=== PATIENT | female | born 1960 | race Caucasian/White ===

== ENCOUNTER 2017-04-27 11:38 | Observation (INO) | payer OTHER ==
[~2017-04-27] VITALS: Ht 157.5 cm; Wt 62.0 kg
--- NOTE | 2017-04-27 12:05 | DIAGNOSTIC IMAGING REPORT ---
CHEST ONE VIEW PORTABLE HISTORY: Atypical chest pain COMPARISON: None. FINDINGS: The lungs are clear. Cardiac silhouette is normal in size. No pleural effusions. No pneumothorax. IMPRESSION: No acute process. Electronically signed by: Simone Zee M.D. 04/27/2017 12:03 PM Dictated Date/Time: 04/27/2017 12:03 PM
[2017-04-27 12:06] LABS: HEMATOCRIT 42.8 % (37-47); HEMOGLOBIN 14.5 g/dL (12.0-16.0); MEAN CELL VOLUME 95.5 fL (80-100); MEAN CORPUSCULAR HEMOGLOBIN 32.4 pg (25-34); MEAN CORPUSCULAR HGB CONC 33.9 g/dl (32-36); MEAN PLATELET VOLUME 9.1 fL (7.4-10.4); PLATELET COUNT 278 K/uL (130-400); RED CELL DISTRIBUTION WIDTH CV 13.3 % (11.5-14.5); RED CELL DISTRIBUTION WIDTH SD 45.8 fL (36.4-46.3); WHITE BLOOD COUNT 8.37 K/uL (4.8-10.8)
[2017-04-27] MEDS ORDERED: MULT-1018 PO (12:12)
[2017-04-27] MEDS ORDERED: BLAC1TAB PO (12:12)
[2017-04-27] MEDS ORDERED: ASPI81TA28 PO (12:12)
[2017-04-27 12:16] LABS: PTT PATIENT 25.2 SECONDS (21.0-31.0)
[2017-04-27 12:19] LABS: ALBUMIN 4.1 gm/dl (3.4-5.0); CALCIUM 9.1 mg/dl (8.5-10.1); CREATININE 0.66 mg/dl (0.60-1.20); POTASSIUM 3.7 mmol/L (3.5-5.1)
[2017-04-27 12:24] LABS: CKMB 2.3 ng/ml (0.5-3.6); TOTAL PROTEIN 7.6 gm/dl (6.4-8.2)
[2017-04-27] MEDS ORDERED: ASPIRIN 81 MG CHEW PO STA (12:42)
[2017-04-27] MEDS ORDERED: NITROGLYCERIN 0.4 MG SL PER TAB CHARGE SL PRN (13:45)
[2017-04-27] MEDS ORDERED: ONDANSETRON INJ 2 MG/ML 2 ML VIAL IV PRN (13:45)
[2017-04-27] MEDS ORDERED: ACETAMINOPHEN 325 MG TAB PO PRN (13:45)
[2017-04-27] MEDS ORDERED: MAGNESIUM HYDROXIDE SUSP 30 ML UDC PO PRN (13:45)
--- NOTE | 2017-04-27 13:53 | History and Physical ---
History & Physical Date & Time of Service: Apr 27, 2017 at 13:43 Chief Complaint: Chest Pain,Tingling In Right Arm,Light Headed Primary Care Physician: Jennifer Barr MD History of Present Illness Source: patient 57 y/o F c/o chest pain. 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 It did not radiate anywhere. She did not have SOB, but states she was afraid to take a breath because it hurt. She then noted nausea and a headache and R hand tingling. She took aspirin 81mg and felt improved. Pt has not prior hx of chest pain or similar sx. She has not had recurrence of these sx since that time. Pt is generally very active. She works 12 hour days and is active around their home. She states she has felt a bit more fatigued than usual. She noted neck pain around 04/14/17 and was seen by an urgent care. XR showed OA. She was dx with eustachian tube dysfunction and given a prescription for steroids. She noted feeling overall improved while on the steroids, but since she finished them, her neck pain is slowly returning and her energy is not as high again. She states that other than this, yesterday was a normal day for her and she had no other issues completing her usual day. Pt denies fever, abd pain, v/c/d, LE pain or swelling. Past Medical/Surgical History Medical Problems: (1) Neck arthritis Status: Chronic Family History Heart disease Father: with CHF Mother: , Multiple CVAs and MIs, hx of afib Social History Smoking Status: Never Smoker Alcohol Use: 1-2 beers on most days Drug Use: none Allergies Coded Allergies: No Known Allergies (Unverified , 04/27/17) Home Medications Scheduled Aspirin (Aspirin Ec), 81 MG PO UD Black Cohosh (Cimicifuga Racem (Black Cohosh), Unknown Dose PO DAILY Multiple Vitamins W/ Minerals (Hair Skin and Nails Formu), 1 TAB PO DAILY Review of Systems Pertinent positives and negatives reviewed in HPI--all others negative Physical Exam Vital Signs Date Time Temp Pulse Resp B/P (MAP) Pulse Ox O2 Delivery O2 Flow Rate FiO2 04/27/17 12:49 84 18 132/76 100 Room Air 04/27/17 12:21 85 04/27/17 11:58 81 18 150/94 99 Room Air 04/27/17 11:55 100 Room Air 04/27/17 11:50 99 Room Air 04/27/17 11:47 36.8 81 18 178/103 99 Room Air 04/27/17 11:47 99 Room Air General Appearance: WD/WN, no apparent distress Head: normocephalic, atraumatic Eyes: normal inspection, EOMI, sclerae normal Respiratory/Chest: normal breath sounds, no respiratory distress Cardiovascular: regular rate, rhythm, no edema, normal peripheral pulses Abdomen/GI: non tender, soft Extremities/Musculoskelatal: no calf tenderness, no pedal edema Neurologic/Psych: alert, normal mood/affect, oriented x 3 Skin: normal color, warm/dry Diagnostics Laboratory Results Results Past 24 Hours Test 04/27/17 11:45 04/27/17 11:51 Range/Units White Blood Count 8.37 4.8-10.8 K/uL Red Blood Count 4.48 4.2-5.4 M/uL Hemoglobin 14.5 12.0-16.0 g/dL Hematocrit 42.8 37-47 % Mean Corpuscular Volume 95.5 80-100 fL Mean Corpuscular Hemoglobin 32.4 25-34 pg Mean Corpuscular Hemoglobin Concent 33.9 32-36 g/dl RDW Standard Deviation 45.8 36.4-46.3 fL RDW Coefficient of Variation 13.3 11.5-14.5 % Platelet Count 278 130-400 K/uL Mean Platelet Volume 9.1 7.4-10.4 fL Prothrombin Time 10.4 9.0-12.0 SECONDS Prothromb Time International Ratio 1.0 0.9-1.1 Activated Partial Thromboplast Time 25.2 21.0-31.0 SECONDS Partial Thromboplastin Ratio 1.0 Sodium Level 139 136-145 mmol/L Potassium Level 3.7 3.5-5.1 mmol/L Chloride Level 104 98-107 mmol/L Carbon Dioxide Level 27 21-32 mmol/L Anion Gap 8.0 3-11 mmol/L Blood Urea Nitrogen 13 7-18 mg/dl Creatinine 0.66 0.60-1.20 mg/dl Est Creatinine Clear Calc Drug Dose 75.3 ml/min Estimated GFR () 114.5 Estimated GFR (Non- 98.8 BUN/Creatinine Ratio 19.4 10-20 Random Glucose 94 70-99 mg/dl Calcium Level 9.1 8.5-10.1 mg/dl Total Bilirubin 0.4 0.2-1 mg/dl Aspartate Amino Transf (AST/SGOT) 19 15-37 U/L Alanine Aminotransferase (ALT/SGPT) 28 12-78 U/L Alkaline Phosphatase 51 45-117 U/L Total Creatine Kinase 104 26-192 U/L Creatine Kinase MB 2.3 0.5-3.6 ng/ml Creatine Kinase MB Ratio 2.2 0-3.0 Total Protein 7.6 6.4-8.2 gm/dl Albumin 4.1 3.4-5.0 gm/dl Globulin 3.5 2.5-4.0 gm/dl Albumin/Globulin Ratio 1.2 0.9-2 Bedside Troponin I < 0.030 0-0.045 ng/ml CXR normal Normal EKG Impression Assessment and Plan 57 y/o F who was admitted for observation on 04/27 for chest pain. Chest pain: uncertain etiology, rule out ACS CXR neg EKG WNL Trop neg x1, serials pending CBC, PRP neg Lyme, TSH, ddimer pending Lipid panel pending Sx were at rest and typically very active, t/c outpt stress test if work-up is neg Other: Full code Reg diet Ambulation for DVT proph given likely short duration of admission Level of Care Telemetry Resuscitation Status FULL RESUSCITATION VTE Prophylaxis VTE Risk Assessment Done? Y/N: Yes Risk Level: Low
[2017-04-27] MEDS ORDERED: IV FLUIDS COMPLETED PRN (14:15)
[2017-04-27 14:23] VITALS: O2SAT 97; Ht 157.5 cm; Wt 62.0 kg
[2017-04-27 14:25] VITALS: O2SAT 97
--- NOTE | 2017-04-27 14:52 | EMERGENCY ROOM VISIT NOTE ---
History Report prepared by Donnie: Hernando Matthews Under the Supervision of: Dr. Marshall Bhagat M.D. First contact with patient: 12:20 Chief Complaint: CHEST PAIN Stated Complaint: CHEST PAIN,TINGLING IN RIGHT ARM,LIGHT HEADED Nursing Triage Summary: Today at 0945 pt experienced sharp CP across her whole chest lasting about three minutes, then the CP resolved and pt felt "woozy and had a dull headache". Pt took a baby ASA. Denies cardiac hx. No CP currently, but still feels woozy with headache 2/10. Pt recently was on Prednisone for arthritic neck pain, dx by PCP with xrays, prednisone rx complete. Neck pain was better while she was on steroids, but now that rx is complete, pain has returned 3/10. History of Present Illness The patient is a 57 year old female who presents to the Emergency Room with complaints of sharp bilateral chest pain that occurred about 3 hours ago, lasting for 3 minutes. After this small episode, her pain resolved and she is currently pain-free. After her chest pain resolved, she began to experience nausea with a dull headache. She took a baby Aspirin at this time, but her chest pain never recurred. However, she is experiencing some right sided arm numbness mildly. Pt denies LOC, fevers, chills, diaphoresis, visual changes, neck pain, tearing pain radiating to the back, personal history or family history of aneurysm or pulmonary embolism, uncontrolled hypertension, breathing difficulties, leg swelling, coagulation abnormalities, prolonged travel, recent surgery or immobilization, vomiting, abdominal pain, melena, hematochezia, urinary symptoms, weakness, lymphadenopathy, rash, or other complaints. She notes that she was recently on Prednisone for arthritic neck pain and has completed her course. While she was taking them, her neck pain was not present, but now that she is off of them she is having neck pain. She does not take Aspirin or any other blood thinners regularly. Source of History: patient Onset: 3 hours ago Position: chest (bilateral) Symptom Intensity: moderate Quality: sharp Timing: resolved Associated Symptoms: + headache, + neck pain, + nausea, + numbness (right arm) Review of Systems See HPI for pertinent positives and negatives. A total of ten systems were reviewed and were otherwise negative. Past Medical & Surgical Medical Problems: (1) Chest pain (2) Neck arthritis Family History Heart disease Social History Smoking Status: Never Smoker Smokeless Tobacco Use: No Drug Use: none Marital Status: Housing Status: lives with family Current/Historical Medications Scheduled Aspirin (Aspirin Ec), 81 MG PO UD Black Cohosh (Cimicifuga Racem (Black Cohosh), Unknown Dose PO DAILY Multiple Vitamins W/ Minerals (Hair Skin and Nails Formu), 1 TAB PO DAILY Allergies Coded Allergies: No Known Allergies (Unverified , 04/27/17) Physical Exam Vital Signs Date Time Temp Pulse Resp B/P (MAP) Pulse Ox O2 Delivery O2 Flow Rate FiO2 04/27/17 14:25 87 16 133/85 97 Room Air 04/27/17 14:23 97 Room Air 04/27/17 12:49 84 18 132/76 100 Room Air 04/27/17 12:21 85 04/27/17 11:58 81 18 150/94 99 Room Air 04/27/17 11:55 100 Room Air 04/27/17 11:50 99 Room Air 04/27/17 11:47 36.8 81 18 178/103 99 Room Air 04/27/17 11:47 99 Room Air Physical Exam GENERAL: Awake, alert, well-appearing, in no distress HENT: Normocephalic, atraumatic. Oropharynx unremarkable. EYES: Normal conjunctiva. Sclera non-icteric. NECK: Supple. No nuchal rigidity. FROM. No JVD. RESPIRATORY: Clear to auscultation. CARDIAC: Regular rate, normal rhythm. Extremities warm and well perfused. Pulses equal. ABDOMEN: Soft, non-distended. No tenderness to palpation. No rebound or guarding. No masses. RECTAL: Deferred. MUSCULOSKELETAL: Chest examination reveals no tenderness. The back is symmetrical on inspection without obvious abnormality. There is no CVA tenderness to palpation. No joint edema. LOWER EXTREMITIES: Calves are equal size bilaterally and non-tender. No edema. No discoloration. NEURO: Normal sensorium. No sensory or motor deficits noted. SKIN: No rash or jaundice noted. Medical Decision & Procedures ER Provider Diagnostic Interpretation: Radiology results as stated below per my review and radiologist interpretation: CHEST ONE VIEW PORTABLE HISTORY: Atypical chest pain COMPARISON: None. FINDINGS: The lungs are clear. Cardiac silhouette is normal in size. No pleural effusions. No pneumothorax. IMPRESSION: No acute process. Electronically signed by: iSmone Zee M.D. 04/27/2017 12:03 PM Dictated Date/Time: 04/27/2017 12:03 PM Laboratory Results 04/27/17 11:45 04/27/17 11:45 Test 04/27/17 11:45 04/27/17 11:51 04/27/17 13:38 Red Blood Count 4.48 M/uL (4.2-5.4) Mean Corpuscular Volume 95.5 fL (80-100) Mean Corpuscular Hemoglobin 32.4 pg (25-34) Mean Corpuscular Hemoglobin Concent 33.9 g/dl (32-36) RDW Standard Deviation 45.8 fL (36.4-46.3) RDW Coefficient of Variation 13.3 % (11.5-14.5) Mean Platelet Volume 9.1 fL (7.4-10.4) Prothrombin Time 10.4 SECONDS (9.0-12.0) Prothromb Time International Ratio 1.0 (0.9-1.1) Activated Partial Thromboplast Time 25.2 SECONDS (21.0-31.0) Partial Thromboplastin Ratio 1.0 Anion Gap 8.0 mmol/L (3-11) Est Creatinine Clear Calc Drug Dose 75.3 ml/min Estimated GFR () 114.5 Estimated GFR (Non- 98.8 BUN/Creatinine Ratio 19.4 (10-20) Calcium Level 9.1 mg/dl (8.5-10.1) Total Bilirubin 0.4 mg/dl (0.2-1) Aspartate Amino Transf (AST/SGOT) 19 U/L (15-37) Alanine Aminotransferase (ALT/SGPT) 28 U/L (12-78) Alkaline Phosphatase 51 U/L (45-117) Total Creatine Kinase 104 U/L (26-192) Creatine Kinase MB 2.3 ng/ml (0.5-3.6) Creatine Kinase MB Ratio 2.2 (0-3.0) Total Protein 7.6 gm/dl (6.4-8.2) Albumin 4.1 gm/dl (3.4-5.0) Globulin 3.5 gm/dl (2.5-4.0) Albumin/Globulin Ratio 1.2 (0.9-2) Bedside Troponin I < 0.030 ng/ml (0-0.045) Laboratory results reviewed by me Medications Administered Medications (Trade) Dose Ordered Sig/Russ Route Start Time Stop Time Status Last Admin Dose Admin Aspirin (Aspirin Chew) 243 mg NOW STAT PO 04/27/17 12:42 04/27/17 12:43 DC 04/27/17 12:48 243 MG ECG Indication: chest pain Rate (beats per minute): 83 Rhythm: normal sinus Findings: no acute ischemic change, no ectopy ED Course 1220: The patient was evaluated in room A9. A complete history and physical exam was performed. 1242: Ordered Aspirin 243 mg PO 1313: Upon reexamination, the patient was resting. I discussed the test results and treatment plan with her. I discussed the patient's case [place] [facility] [place] The patient will be evaluated for further management. Medical Decision Prior records/ancillary studies reviewed. Triage Nursing notes reviewed and agree them. Additional history obtained from the family. The patient's history was concerning for chest pain. Differential diagnosis: Etiologies such as cardiac ischemia, aortic dissection, pulmonary embolism, pneumonia, pneumothorax, musculoskeletal, infections, pericarditis, myocarditis , esophageal rupture, gastrointestinal, as well as others were entertained. Physical examination: As above. ER treatment provided: Oral aspirin Diagnostic interpretation by me: The electrocardiogram was negative for pathologic change. The labs revealed an unremarkable CBC and chemistry panel. Cardiac markers negative. Imaging studies: Chest x-ray as above The patient had chest pain and felt quite ill with this. Her symptoms resolved. She does have multiple risk factors. I discussed further management in the hospital and the patient was in agreement. Consultation: A consultation was placed with the hospitalist. The case was discussed and diagnostics were reviewed. The patient was evaluated in the ER for further treatment. Medication Reconcilliation Current Medication List: was personally reviewed by me Blood Pressure Screening Patient's blood pressure: Elevated blood pressure Referred to the hospitalist Consults Time Called: 1310 Consulting Physician: Dr. [place] [facility] [place] Returned Call: 1313 Discussed the patient's case. The patient will be evaluated for further treatment and disposition. Impression Primary Impression: Substernal chest pain Scribe Attestation The scribe's documentation has been prepared under my direction and personally reviewed by me in its entirety. I confirm that the note above accurately reflects all work, treatment, procedures, and medical decision making performed by me. Departure Information Dispostion Being Evaluated By Hospitalist Referrals Jennifer Barr MD (PCP) Patient Instructions My [facility]
[2017-04-27 14:53] VITALS: BP 159/93; PULSE 90; TEMP 36.8; O2SAT 96
[2017-04-27] MEDS: ASPIRIN 81 MG ECTAB PO SCH (15:23)
[2017-04-27 15:47] LABS: CHOLESTEROL 160 mg/dl (0-200); LDL CHOLESTEROL CALCULATED 82 mg/dl
[2017-04-27 19:47] VITALS: BP 126/76; PULSE 83; TEMP 36.8; O2SAT 96
[2017-04-27 23:45] VITALS: BP 119/74; PULSE 78; TEMP 36.7; O2SAT 97
[2017-04-28 03:09] VITALS: BP 110/73; PULSE 77; TEMP 36.7; O2SAT 95
[2017-04-28 07:56] VITALS: BP 138/76; PULSE 78; TEMP 37; O2SAT 97
[2017-04-28] MEDS: ASPIRIN 81 MG ECTAB PO SCH (08:28)
[2017-04-28] MEDS ORDERED: CEROVITE ADV FORMULA TAB PO SCH (09:00)
--- NOTE | 2017-04-28 11:12 | Discharge Summary ---
Discharge Summary Date of Service Apr 28, 2017. Discharge Summary Admission Date: Apr 27, 2017 at 13:42 Discharge Date: Apr 28, 2017 Discharge Disposition: Home Principal Diagnosis: Atypical Chest Pain Medication Reconciliation Continued Medications: Aspirin (Aspirin Ec) 81 Mg Tab 81 MG PO UD Multiple Vitamins W/ Minerals (Hair Skin and Nails Formu) 1 Tab Tab 1 TAB PO DAILY Discontinued Medications: Black Cohosh (Cimicifuga Racem (Black Cohosh) 20 Mg Tab Unknown Dose PO DAILY Discharge Exam Review of Systems: Constitutional: No fever, No chills ENT: No hearing loss, No unusual epistaxis Respiratory: No cough, No sputum Cardiovascular: No chest pain, No orthopnea Abdomen: No pain, No nausea Musculoskeletal: No joint pain Neurologic: No memory loss, No paralysis Psychiatric: No depression symptoms Endocrine: No fatigue Integumentary: No rash Physical Exam: General Appearance: WD/WN, no apparent distress Neck: supple, no adenopathy Respiratory/Chest: chest non-tender, lungs clear, normal breath sounds Cardiovascular: regular rate, rhythm, no edema, no murmur Abdomen / GI: normal bowel sounds, non tender, soft Extremities: normal inspection Skin: normal color Lymphatic: no adenopathy Hospital Course History of Present Illness Source: patient 57 y/o F c/o chest pain. 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 It did not radiate anywhere. She did not have SOB, but states she was afraid to take a breath because it hurt. She then noted nausea and a headache and R hand tingling. She took aspirin 81mg and felt improved. Pt has not prior hx of chest pain or similar sx. She has not had recurrence of these sx since that time. Pt is generally very active. She works 12 hour days and is active around their home. She states she has felt a bit more fatigued than usual. She noted neck pain around 04/14/17 and was seen by an urgent care. XR showed OA. She was dx with eustachian tube dysfunction and given a prescription for steroids. She noted feeling overall improved while on the steroids, but since she finished them, her neck pain is slowly returning and her energy is not as high again. She states that other than this, yesterday was a normal day for her and she had no other issues completing her usual day. Pt denies fever, abd pain, v/c/d, LE pain or swelling. Hospital Course Assessment and Plan 57 y/o F who was admitted for observation on 04/27 for chest pain. Chest pain: uncertain etiology, ruled out ACS During hospital stay, CXR neg, EKG WNL Trop neg x3, CBC, PRP neg Lyme, TSH negative will obtain stress test as an outpatient. will f/u with cardio and PCP Other: Full code Reg diet Ambulation for DVT proph given likely short duration of admission Total Time Spent: Greater than 30 minutes This includes examination of the patient, discharge planning, medication reconciliation, and communication with other providers. Discharge Instructions Please refer to the electronic Patient Visit Report (Discharge Instructions) for additional information. Follow-Up As noted in discharge instructions Additional Copies To Jennifer Barr MD
--- NOTE | 2017-04-28 11:18 | Discharge Instructions ---
Discharge Instructions Date of Service Apr 28, 2017. Admission Reason for Admission: Chest Pain Discharge Discharge Diagnosis / Problem: Atypical Chest Pain Discharge Goals Goal(s): Decrease discomfort, Improve function Activity Recommendations Activity Limitations: resume your previous activity . Instructions / Follow-Up Instructions / Follow-Up F/U with PCP in 1-2 tete F/UI with cardio in 2 weeks. Recommend outpatient stress test. Script given to patient kishan perform prior to cardio appointment. Current Hospital Diet Patient's current hospital diet: Regular Diet Discharge Diet Recommended Diet: Regular Diet Pending Studies Studies pending at discharge: no Laboratory Results Lipid Panel Test 04/27/17 15:00 Range/Units Triglycerides Level 157 H 0-150 mg/dl Cholesterol Level 160 0-200 mg/dl HDL Cholesterol 47 mg/dl Cholesterol/HDL Ratio 3.4 LDL Cholesterol, Calculated 82 mg/dl Medical Emergencies . Who to Call and When: Medical Emergencies: If at any time you feel your situation is an emergency, please call 911 immediately. . Non-Emergent Contact Non-Emergency issues call your: Primary Care Provider Call Non-Emergent contact if: you have any medication questions (if symptoms return) . . "Provider Documentation" section prepared by Cleve Guy. . VTE Core Measure Inpt VTE Proph given/why not?: Treatment not indicated (short hospital stay/ ambulating)
[2017-04-28 11:32] VITALS: BP 138/76; PULSE 78; TEMP 37; O2SAT 97
[2017-04-28 11:35] VITALS: BP 118/79; PULSE 82; TEMP 36.9; O2SAT 96
== END 2017-04-28 12:10 | disposition home or self-care (01) ==
LOC: C.EDB 11:40 → C.2T 13:42 → ENRESERV 14:13
PROVIDERS: ADMIT Family Medicine; ATTEND Family Medicine
DX: R07.89 Other chest pain (principal); Z79.82 Long term (current) use of aspirin; Z82.49 Family history of ischemic heart disease and other diseases of the circulatory system

== ENCOUNTER → 2017-05-07 | Outpatient (CLI) | payer OTHER ==
[~2017-05-07] MED LIST: ASPI81TA28 PO; MULT-1018 PO
--- NOTE | 2017-05-07 16:20 | Exercise Stress Test Report ---
Exercise Stress Test Report Exercise Stress Test Report Date of Service: 05/07/2017 Exercise Stress Test Report Procedure: Exercise stress ECG Ordering physician: Dr. Guy Indication: Atypical chest pain Procedural details: Patient exercised via standard [place]ston protocol. Resting ECG demonstrated sinus rhythm at 78 bpm. Resting blood pressure was 116/80mmHg. Patient exercised a total of 9 minutes, attaining 10 METS. Maximum heart rate was 166 bpm, representing 101% MPHR. Maximum blood pressure was 187/72mmHg. No chest pain reported. Exercise terminated as greater than 100% of her maximum predicted heart rate was attained. There were no significant ST changes. No arrhythmia. Impression: 1. Negative exercise stress ECG at 101% MPHR. 2. No arrhythmia. 3. No chest pain. 4. Appropriate blood pressure response to exercise. 5. Good exercise tolerance.
== END | disposition home or self-care (01) ==
LOC: C.CPL 09:11
PROVIDERS: ATTEND Internal Medicine Sports Medicine
DX: R07.89 Other chest pain (principal)